=== PATIENT | male | born 1985 | race Two or more races ===

== ENCOUNTER 2017-01-08 16:28 | Emergency (ER) | payer OTHER ==
[~2017-01-08] VITALS: Ht 160 cm; Wt 48.1 kg
[2017-01-08] MEDS ORDERED: NORMAL SALINE IV SCH (16:46)
[2017-01-08 17:05] LABS: BASO # 0.1 x10^3/uL (0.0-0.2); BASO % 1 % (0-3); EOS % 1 % (0-3); HEMATOCRIT 48.7 % (39.0-53.0); HEMOGLOBIN 16.2 g/dL (13.0-17.5); LYMPH # 4.2 x10^3/uL (1.0-4.8); LYMPH % 37 % (24-48); MEAN CORPUSCULAR HEMOGLOBIN 29 pg (25-35); MEAN CORPUSCULAR HGB CONC 33 g/dL (31-37); MEAN CORPUSCULAR VOLUME 86 fL (79-100); MONO % 7 % (0-9); NEUT % 54 % (31-73); PLATELET COUNT 280 x10^3/uL (140-400); RED BLOOD COUNT 5.64 x10^6/uL (4.30-5.70); RED CELL DISTRIBUTION WIDTH 13.2 % (11.5-14.5); WHITE BLOOD COUNT 11.3 x10^3/uL (4.0-11.0)
--- NOTE | 2017-01-08 17:12 | EKG ---
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
[2017-01-08 17:14] LABS: CALCIUM 9.3 mg/dL (8.5-10.1); CREATININE 0.9 mg/dL (0.7-1.3); GFR 97.8; POTASSIUM 3.7 mmol/L (3.5-5.1)
[2017-01-08 17:21] LABS: ALBUMIN 4.3 g/dL (3.4-5.0); ALBUMIN/GLOBULIN RATIO 1.1 (1.0-1.7); TOTAL BILIRUBIN 0.6 mg/dL (0.2-1.0); TOTAL PROTEIN 8.3 g/dL (6.4-8.2)
--- NOTE | 2017-01-08 17:32 | PHYS DOC ---
Past Medical History Past Medical History: No Pertinent History Past Surgical History: No Surgical History Alcohol Use: None Drug Use: None Adult General Chief Complaint Chief Complaint: HEADACHE HPI HPI Patient is a 31 year old male who presents with complaint of right-sided headache. Patient speaks Georgian. An production support consultant line was used to obtain history. Patient states that he has been having headaches over the past 3 weeks. The patient states that he has also felt fevers and chills during this time that he has not measured his temperature. The patient states that he felt chills earlier today. The patient underwent cupping therapy to try to help with symptoms which she stated offered partial relief. Patient notably has 2 circular bruises to the forehead and diffuse ecchymotic rash along spine and bilateral shoulders. Patient states that this is due to a "tool" which he used at home to try to help with his symptoms. Patient denies any cough, shortness of breath, chest pain, abdominal pain, or bloody stools associated with his symptoms. Patient states that he has been within the [place] over the past year and has not had any recent travel. Patient currently rates his headache as 4 out of 10. Patient states that this is improved from earlier today. Review of Systems Review of Systems Constitutional: Fever, chills, headache[] Eyes: Denies change in visual acuity, redness, or eye pain [] HENT: Denies nasal congestion or sore throat [] Respiratory: Denies cough or shortness of breath [] Cardiovascular: Denies chest pain or edema[] GI: Denies abdominal pain, nausea, vomiting, bloody stools or diarrhea [] : Denies dysuria or hematuria [] Musculoskeletal: Denies back pain or joint pain [] Integument: Denies rash or skin lesions [] Neurologic: Headache, denies focal weakness or sensory changes [] All other systems were reviewed and found to be within normal limits, except as documented in this note. Current Medications Current Medications Current Medications Medications (Trade) Dose Ordered Sig/Belinda Start Time Stop Time Status Last Admin Dose Admin Sodium Chloride 500 ml @ 1,000 mls/hr ONCE ONCE 01/08/17 18:15 01/08/17 18:44 01/08/17 18:09 1,000 MLS/HR Allergies Allergies Allergies Coded Allergies Type Severity Reaction Last Updated Verified No Known Drug Allergies 01/08/17 No Physical Exam Physical Exam Constitutional: Alert, afebrile, no acute distress. [] HENT: Normocephalic, atraumatic, bullous lesions present on right tympanic membrane, no purulent middle ear effusion noted, left TM normal, oropharynx mildly erythematous, no oral exudates, nose normal. [] Eyes: PERRLA, EOMI, conjunctiva normal, no discharge. [] Neck: Normal range of motion, no tenderness, supple, no stridor. [] Cardiovascular: Tachycardia, regular rhythm, no murmur [] Lungs & Thorax: Bilateral breath sounds clear to auscultation [] Abdomen: Bowel sounds normal, soft, no tenderness, no masses, no pulsatile masses. [] Skin: Warm, dry, no erythema, no rash. [] Back: No tenderness, no CVA tenderness. [] Extremities: No tenderness, no cyanosis, no clubbing, ROM intact, no edema. [] Neurologic: Alert and oriented X 3, normal motor function, normal sensory function, no focal deficits noted. [] Current Patient Data Vital Signs Vital Signs Date Time Temp Pulse Resp B/P (MAP) Pulse Ox O2 Delivery O2 Flow Rate FiO2 01/08/17 18:00 64 16 99 01/08/17 16:54 97.8 132/85 (101) Room Air 97.8 Lab Values Laboratory Tests Test 01/08/17 16:56 01/08/17 17:24 01/08/17 18:05 White Blood Count 11.3 x10^3/uL (4.0-11.0) H Red Blood Count 5.64 x10^6/uL (4.30-5.70) Hemoglobin 16.2 g/dL (13.0-17.5) Hematocrit 48.7 % (39.0-53.0) Mean Corpuscular Volume 86 fL (79-100) Mean Corpuscular Hemoglobin 29 pg (25-35) Mean Corpuscular Hemoglobin Concent 33 g/dL (31-37) Red Cell Distribution Width 13.2 % (11.5-14.5) Platelet Count 280 x10^3/uL (140-400) Neutrophils (%) (Auto) 54 % (31-73) Lymphocytes (%) (Auto) 37 % (24-48) Monocytes (%) (Auto) 7 % (0-9) Eosinophils (%) (Auto) 1 % (0-3) Basophils (%) (Auto) 1 % (0-3) Neutrophils # (Auto) 6.1 x10^3uL (1.8-7.7) Lymphocytes # (Auto) 4.2 x10^3/uL (1.0-4.8) Monocytes # (Auto) 0.7 x10^3/uL (0.0-1.1) Eosinophils # (Auto) 0.2 x10^3/uL (0.0-0.7) Basophils # (Auto) 0.1 x10^3/uL (0.0-0.2) Sodium Level 143 mmol/L (136-145) Potassium Level 3.7 mmol/L (3.5-5.1) Chloride Level 105 mmol/L (98-107) Carbon Dioxide Level 28 mmol/L (21-32) Anion Gap 10 (6-14) Blood Urea Nitrogen 18 mg/dL (8-26) Creatinine 0.9 mg/dL (0.7-1.3) Estimated GFR (Cockcroft-Gault) 97.8 BUN/Creatinine Ratio 20 (6-20) Glucose Level 101 mg/dL (70-99) H Lactic Acid Level 1.7 mmol/L (0.4-2.0) Calcium Level 9.3 mg/dL (8.5-10.1) Total Bilirubin 0.6 mg/dL (0.2-1.0) Aspartate Amino Transferase (AST) 29 U/L (15-37) Alanine Aminotransferase (ALT) 33 U/L (16-63) Alkaline Phosphatase 75 U/L (46-116) Total Protein 8.3 g/dL (6.4-8.2) H Albumin 4.3 g/dL (3.4-5.0) Albumin/Globulin Ratio 1.1 (1.0-1.7) Lipase 242 U/L (73-393) Influenza Type A Antigen Negative (NEGATIVE) Influenza Type B Antigen Negative (NEGATIVE) Urine Collection Type Unknown Urine Color Yellow Urine Clarity Clear Urine pH 6.0 Urine Specific [place] >=1.030 Urine Protein Negative mg/dL (NEG-TRACE) Urine Glucose (UA) Negative mg/dL (NEG) Urine Ketones (Stick) Negative mg/dL (NEG) Urine Blood Negative (NEG) Urine Nitrite Negative (NEG) Urine Bilirubin Negative (NEG) Urine Urobilinogen Dipstick 0.2 mg/dL (0.2 mg/dL) Urine Leukocyte Esterase Negative (NEG) Urine RBC Occ /HPF (0-2) Urine WBC 1-4 /HPF (0-4) Urine Squamous Epithelial Cells Few /LPF Urine Amorphous Sediment Present /HPF Urine Bacteria 0 /HPF (0-FEW) Urine Mucus Mod /LPF Laboratory Tests 01/08/17 16:56 Laboratory Tests 01/08/17 16:56 EKG EKG Interpreted by me: Heart rate 68, sinus rhythm, normal intervals, normal axis, no acute ST/T-wave abnormalities present[] Radiology/Procedures Radiology/Procedures Two-view chest x-ray interpreted by me: No pulmonary infiltrates, no effusions, normal cardiac silhouette[] Course & Med Decision Making Course & Med Decision Making Pertinent Labs and Imaging studies reviewed. (See chart for details) Patient given IV fluids in the emergency department. Patient's blood work showed a mildly elevated white count below the threshold of SIRS criteria. The patient's exam shows evidence of bullous myringitis but no other significant findings. Patient was started on doxycycline for treatment. Advise follow-up in 5-7 days for reevaluation and return emergency department for any worsening symptoms. Patient voiced understanding and in agreement with treatment plan. Dragon Disclaimer Dragon Disclaimer This electronic medical record was generated, in whole or in part, using a voice recognition dictation system. Departure Departure Impression: Primary Impression: Bullous myringitis of right ear Disposition: 01 HOME, SELF-CARE Condition: IMPROVED Referrals: UNKNOWN PCP NAME (PCP) Patient Instructions: Bullous Myringitis Additional Instructions: Follow-up with your primary doctor in 5-7 days for reevaluation. Return to the emergency department for any worsening symptoms. Scripts Ibuprofen (IBUPROFEN) 600 Mg Tablet 600 MG PO Q6HRS Y for HEADACHE, #30 TAB Prov: MARIS DUNN MD 01/08/17 Doxycycline Hyclate (DOXYCYCLINE HYCLATE) 100 Mg Capsule 1 CAP PO BID, #14 CAP Prov: MARIS DUNN MD 01/08/17 MARIS DUNN MD Jan 08, 2017 17:32
[2017-01-08] MEDS ORDERED: IV NORMAL SALINE 1000ML BAG 1,000 ML IV SCH (17:45)
[2017-01-08 17:46] LABS: OBC FLU VALID
[2017-01-08 18:00] VITALS: BP 135/83
[2017-01-08 18:14] LABS: BILIRUBIN,URINE NEGATIVE (NEG); GLUCOSE,URINE NEGATIVE (NEG); NITRITE,URINE NEGATIVE (NEG); PROTEIN,URINE NEGATIVE (NEG-TRACE); UROBILINOGEN,URINE 0.2 mg/dL (0.2 mg/dL)
[2017-01-08] MEDS ORDERED: IV NORMAL SALINE 500ML BAG 500 ML IV ONE (18:15)
[2017-01-08 18:23] LABS: BACTERIA,URINE 0 /HPF (0-FEW); RBC,URINE OCC /HPF (0-2); SQUAMOUS EPITHELIAL CELL,UR FEW /LPF
[2017-01-08] MEDS ORDERED: IBUP-1007 PO (18:39)
[2017-01-08] MEDS ORDERED: DOXY100C2 PO (18:39)
[2017-01-09 05:46] LABS: NEGATIVE OBC STREP NEG; POSITIVE OBC STREP POS
--- NOTE | 2017-01-09 08:29 | RAD ---
Two view chest History:fever, headache for 2 weeks. PA and lateral views of the chest are submitted. Comparison: None Findings: There is no significant infiltrate, pleural effusion, or pneumothorax. The pericardial cardiac silhouette is within normal limits in size. The trachea is in the midline. No acute osseous abnormality is identified. Impression: There is no evidence of acute cardiopulmonary disease.
== END 2017-01-08 18:54 | disposition home or self-care (01) ==
LOC: ER 16:28
DX: H73.011 Bullous myringitis, right ear (principal); R21 Rash and other nonspecific skin eruption
CPT/HCPCS: 36415; 71020; 80053; 81001; 83605; 83690; 85025; 87040; 87070; 87804; 87880; 93005; 96360; 96361; 99285; J7030; J7040